=== PATIENT | male | born 1960 | race Caucasian/White ===

== ENCOUNTER 2021-12-10 17:52 | Inpatient (IN) | payer BC ==
[2021-12-10] MEDS ORDERED: Nitroglycerin 0.4 MG TAB (25 Tab Bottle) SL PRN (20:32)
[2021-12-10] MEDS ORDERED: Carvedilol 12.5 MG TAB PO SCH (21:15)
[2021-12-10] MEDS: Atorvastatin Calcium 40 MG TAB PO SCH (21:20)
[2021-12-10] MEDS: Nitroglycerin 2% Ointment 1 INCH/1 GM Packet TOP SCH (21:20)
[2021-12-10] MEDS ORDERED: Enoxaparin Sodium 100 MG/ML SYRINGE SC SCH (22:30)
[2021-12-10 22:54] VITALS: BMI 32.0
[2021-12-11 00:18] LABS: Troponin I 0.029 ng/mL (< 0.028)
[2021-12-11 04:56] LABS: #Basophils 0.1 10x3/uL (0.0-0.2); #Eosinphils 0.3 10x3/uL (0.0-0.5); #Monocytes 0.8 10x3/uL (0.0-1.1); #Neutrophils 3.2 10x3/uL (1.5-8.4); %Basophils 1.2 % (0.0-2.0); %Lymphocytes 34.6 % (18.0-47.0); %Monocytes 11.8 % (0.0-10.0); %Neutrophils 48.1 % (40.0-75.0); Hemoglobin 15.1 g/dL (13.5-17.5); Mean Corpuscular HGB CONC 34.6 g/dL (32.0-36.0); Mean Corpuscular Hemoglobin 29.6 pg (27.0-33.0); Mean Corpuscular Volume 85.5 fl (81.2-95.1); Mean Platelet Volume 10.2 fl (7.4-10.4); Platelet Count 257 10x3/uL (150-450); RBC Distribution Width 12.6 % (11.5-14.5); White Blood Cell (WBC) Count 6.7 10x3/uL (3.5-10.5)
[2021-12-11 05:14] LABS: Anion Gap 14 mmol/L (10-20); BUN (Urea Nitrogen) 24 mg/dL (8.4-25.7); Calc. Creatinine Clearance 95 mL/min (70-130); Calcium 9.5 mg/dL (7.8-10.44); Carbon Dioxide 28 mmol/L (22-29); Cardiac Risk 6.4 (Less than 4.5); Chloride 102 mmol/L (98-107); Cholesterol 187 mg/dl (< 200 Desired); Glucose 100 mg/dL (70-105); HDL Cholesterol 29 mg/dL (>60 Neg Risk); LDL Cholesterol, Calculated 114 mg/dL; Potassium 4.2 mmol/L (3.5-5.1); Sodium 140 mmol/L (136-145); Triglycerides 218 mg/dL (Less than 150)
[2021-12-11] MEDS: Nitroglycerin 2% Ointment 1 INCH/1 GM Packet TOP SCH ×3 (05:53→22:24)
[2021-12-11] MEDS: Acetaminophen 325 MG TAB PO PRN ×3 (06:03→20:10)
[2021-12-11 06:26] LABS: Magnesium 2.4 mg/dL (1.6-2.6)
[2021-12-11] MEDS: Aspirin Chewable 81 MG TAB PO SCH (08:24)
[2021-12-11] MEDS: Carvedilol 12.5 MG TAB PO SCH ×2 (08:24→17:40)
[2021-12-11] MEDS: Hydrochlorothiazide 25 MG TAB PO SCH (08:24)
[2021-12-11] MEDS: Losartan Potassium 50 MG TAB PO SCH (08:25)
[2021-12-11] MEDS: Venlafaxine HCl 37.5 MG TAB PO SCH (08:25)
[2021-12-11] MEDS ORDERED: Enoxaparin Sodium 40 MG/0.4 ML SYRINGE SC SCH (09:00)
[2021-12-11] MEDS ORDERED: Losartan 25 MG TAB PO SCH (09:00)
[2021-12-11] MEDS ORDERED: hydrALAZINE 20 MG/ML VIAL SLOW IVP PRN (11:06)
[2021-12-11 12:37] LABS: Hemoglobin A1c 5.6 % (4.0-6.0)
[2021-12-11] MEDS ORDERED: Communication Order-Pharmacy FS SCH (13:00)
[2021-12-11] MEDS: Atorvastatin Calcium 40 MG TAB PO SCH (20:09)
[2021-12-12] MEDS: Nitroglycerin 2% Ointment 1 INCH/1 GM Packet TOP SCH ×2 (06:22→13:30)
[2021-12-12] MEDS: Hydrochlorothiazide 25 MG TAB PO SCH (06:23)
[2021-12-12] MEDS: Aspirin Chewable 81 MG TAB PO SCH (06:23)
[2021-12-12] MEDS: Losartan Potassium 50 MG TAB PO SCH (06:23)
[2021-12-12] MEDS: Carvedilol 12.5 MG TAB PO SCH ×2 (06:23→17:14)
[2021-12-12] MEDS ORDERED: Nitroglycerin 50 MG/250 ML BOT 0 ML ONE (07:40)
[2021-12-12] MEDS ORDERED: Heparin 10,000 UNITS/ 10 ML VIAL ONE (07:40)
[2021-12-12] MEDS ORDERED: Adenosine 6 MG/2 ML VIAL ONE (07:41)
[2021-12-12] MEDS ORDERED: Lidocaine 1% 20 ML MDV ONE (07:42)
[2021-12-12] MEDS ORDERED: Fentanyl 100 MCG/2 ML VIAL ONE (07:43)
[2021-12-12] MEDS ORDERED: Midazolam HCl 2 mg/2 ml Vial ONE ×2 (07:43→10:04)
[2021-12-12] MEDS ORDERED: TICAGRELOR 90 MG TABLET ONE (09:52)
[2021-12-12] MEDS ORDERED: Protamine Sulfate 50 MG/5 ML VIAL ONE (10:00)
[2021-12-12] MEDS ORDERED: hydrALAZINE 20 MG/ML VIAL ONE (10:01)
[2021-12-12] MEDS ORDERED: hydrALAZINE 25 MG TAB PO SCH ×2 (11:15→21:00)
[2021-12-12] MEDS: Venlafaxine HCl 37.5 MG TAB PO SCH (11:34)
[2021-12-12] MEDS: Acetaminophen 325 MG TAB PO PRN (11:34)
[2021-12-12] MEDS ORDERED: Acetaminophen/Codeine 30-300mg Tablet PO PRN ×2 (11:52)
[2021-12-12] MEDS ORDERED: Nitroglycerin 0.4 MG TAB (25 Tab Bottle) SL PRN (11:52)
[2021-12-12] MEDS ORDERED: Sodium Chloride 0.9% 200 ML IV PRN (11:52)
[2021-12-12 12:54] VITALS: TEMP 97.8
[2021-12-12 15:31] VITALS: BP 139/81
[2021-12-12] MEDS ORDERED: TICAGRELOR 90 MG TABLET PO SCH (21:00)
== END 2021-12-12 17:52 | disposition home or self-care (01) | DRG 287 ==
LOC: CSHTELE 17:52 → OBSVTOIN 12-12 11:16
PROVIDERS: ADMIT Family Medicine; ATTEND Family Medicine
PROC: 4A023N7 Measurement of Cardiac Sampling and Pressure, Left Heart, Percutaneous Approach (ICD-10-PCS; principal; 2021-12-12)
PROC: B2111ZZ Fluoroscopy of Multiple Coronary Arteries using Low Osmolar Contrast (ICD-10-PCS; 2021-12-12)
PROC: B2151ZZ Fluoroscopy of Left Heart using Low Osmolar Contrast (ICD-10-PCS; 2021-12-12)
PROC: B2181ZZ Fluoroscopy of Left Internal Mammary Bypass Graft using Low Osmolar Contrast (ICD-10-PCS; 2021-12-12)
PROC: B2131ZZ Fluoroscopy of Multiple Coronary Artery Bypass Grafts using Low Osmolar Contrast (ICD-10-PCS; 2021-12-12)
PROC: B241ZZ3 Ultrasonography of Multiple Coronary Arteries, Intravascular (ICD-10-PCS; 2021-12-12)
PROC: B3101ZZ Fluoroscopy of Thoracic Aorta using Low Osmolar Contrast (ICD-10-PCS; 2021-12-12)
DX: I25.110 Atherosclerotic heart disease of native coronary artery with unstable angina pectoris (principal); T82.855A Stenosis of coronary artery stent, initial encounter; Z20.822 Contact with and (suspected) exposure to COVID-19; E78.5 Hyperlipidemia, unspecified; F43.10 Post-traumatic stress disorder, unspecified; I10 Essential (primary) hypertension; G47.33 Obstructive sleep apnea (adult) (pediatric); E66.01 Morbid (severe) obesity due to excess calories; G89.4 Chronic pain syndrome; Y83.8 Other surgical procedures as the cause of abnormal reaction of the patient, or of later complication, without mention of misadventure at the time of the procedure; M54.9 Dorsalgia, unspecified; M54.2 Cervicalgia; Z98.52 Vasectomy status; Z79.82 Long term (current) use of aspirin; Z79.899 Other long term (current) drug therapy; Z80.1 Family history of malignant neoplasm of trachea, bronchus and lung; I25.2 Old myocardial infarction; Z95.1 Presence of aortocoronary bypass graft; Z95.5 Presence of coronary angioplasty implant and graft; Z88.6 Allergy status to analgesic agent; Z88.8 Allergy status to other drugs, medicaments and biological substances; Z86.16 Personal history of COVID-19; Z82.49 Family history of ischemic heart disease and other diseases of the circulatory system; Z82.3 Family history of stroke; Z68.32 Body mass index [BMI] 32.0-32.9, adult; Z87.891 Personal history of nicotine dependence
CPT/HCPCS: 36415; 80048; 80061; 83036; 83735; 85025; 92978; 92979; 93005; 93010; 93306; 93459; 94760; 99152; 99153; C1753; C1760; C1769; C1887; J0153; J0360; J1644; J1650; J2250; J2720; J3010; U0003; U0005